=== PATIENT | female | born 2005 | race Two or more races ===

== ENCOUNTER 2025-06-06 17:51 | Emergency (ER) | payer MEDICAID, SELFPAY ==
[2025-06-06 18:16] VITALS: BP 120/81; PULSE 94; RESP 17; TEMP 37.1; O2SAT 100; BMI 17.3
--- NOTE | 2025-06-06 18:25 | EKG_ITS ---
[facility] Test Date: 2025-06-06 Pat Name: ADRIEN MADRID Department: Room: - Gender: Female Temporary Receptionist: : 2005 Requested By: Isidro Roberson Order Number: [id number] Reading MD: Isidro Roberson Measurements Intervals [place] Rate: 87 P: 64 TN: 140 QRS: 80 QRSD: 92 T: 56 QT: 352 QTc: 424 Interpretive Statements SINUS RHYTHM No previous ECG available for comparison /store/S0/[id number]/ecg/[id number].pdf
--- NOTE | 2025-06-06 18:37 | XR_ITS ---
Examination: CT brain head without contrast. 2-D sagittal coronal reconstructions Date and time of exam:June 06, 2025 and 1918 hours INDICATIONS: Syncopal episode today with dilated pupils on clinical examination CTDI: vol (mGy):43.8 DLP: (mGycm):890 Technique: Multiple CT axial sections of the brain have been obtained, 5 mm slice thickness. Contrast has not been administered. 2-D sagittal, coronal reconstructions have been obtained Low dose protocols were performed. One or more of the following dose reduction techniques were used; automated exposure control, adjustment of the mA and/or KV according to patient size, use of iterative reconstruction technique. Findings: No significant ventricular enlargement. Intra-axial or extra-axial hemorrhage density is not seen. No mass effect or midline shift Basal cisterns are not remarkable. Fourth ventricle is midline. Cranial vault intact. Impression: Negative for acute hemorrhage, mass effect or midline shift If symptoms persist, consider brain MRI follow-up
--- NOTE | 2025-06-06 18:47 | PD.EDCHEST ---
ED Chest Pain RME/HPI General Chief Complaint: Dizziness Stated Complaint: DIZZY, SHAKY, CHEST PAIN, DYSPNEA X 10 MIN Time Seen by Provider: 06/06/25 18:36 Arrival date/time: 06/06/25 17:51 19F with no significant PMH presents to ED with episode today of CP, SOB, dizziness, and lightheadedness. Patient states during this episode, she urinated and pooped herself. Patient denies any current pain/symptoms. Patient denies recently having URI symptoms or fevers/chills. Patient also denies drug/alcohol use. Limitations: no limitations Related Data Allergies Allergy/AdvReac Type Severity Reaction Status Date / Time No Known Allergies Allergy Verified 06/06/25 17:54 Review of Systems Review of Systems Systems Reviewed: All systems reviewed, normal except as documented Constitutional Constitutional: Reports system reviewed and no additional complaints, except as documented, Denies fever(s) and Denies headache(s) ENT Ears, Nose, Mouth, and Throat: Reports as per HPI, Denies disequilibrium, Denies headache(s) and Reports vertigo Cardiovascular Cardiovascular: Reports system reviewed and no additional complaints, except as documented, Reports as per HPI, Reports chest pain, Reports dyspnea and Reports syncope (near) Respiratory Respiratory: Reports system reviewed and no additional complaints, except as documented, Denies cough and Reports dyspnea Gastrointestinal Gastrointestinal: Reports system reviewed and no additional complaints, except as documented, Reports as per HPI, Denies abdominal pain, Reports diarrhea, Denies nausea and Denies vomiting Genitourinary Genitourinary: Reports as per HPI and Reports urinary incontinence Neurologic Neurologic: Reports system reviewed and no additional complaints, except as documented, Reports as per HPI, Denies confusion, Denies disequilibrium, Denies headache(s), Reports syncope (near) and Reports vertigo Psychiatric Psychiatric: Denies confusion Past Medical History Social History SMOKING STATUS: Never smoker ED Exam General Limitations: Present no limitations General appearance: Present alert and in no apparent distress Head Head exam: Present atraumatic Eye Eye exam: Present EOMI Expanded Eye Exam Pupils: Bilateral: size (dilated) ENT ENT exam: Present normal exam, normal oropharynx and mucous membranes moist Neck Neck exam: Present normal inspection, full ROM and trachea midline Chest Chest inspection: Present normal inspection and symmetric chest wall rise Respiratory Respiratory exam: Present normal lung sounds bilaterally Cardiovascular Cardiovascular exam: Present regular rate, normal rhythm and normal heart sounds Abdominal Exam Abdominal exam: Present soft and normal bowel sounds Extremities Exam Extremities exam: Present normal inspection and full ROM Back Exam Back exam: Present normal inspection and full ROM Neurological Exam Neurological exam: Present alert, oriented X3 and CN II-XII intact Psychiatric Psychiatric exam: Present normal affect and normal mood Skin Skin exam: Present warm, dry, intact and normal color Course Quality Measures none Orders Category Date Time Status CT Screening NOW Care 06/06/25 20:37 Completed EKG (ED ONLY) *Do not use* NOW Care 06/06/25 18:25 Completed Insert IV NOW Care 06/06/25 20:[address] angio carotid w head w Stat Exams 06/06/25 20:[address] head/brain wo con Stat Exams 06/06/25 18:37 Completed EKG (ED Only) Stat Exams 06/06/25 18:25 Draft XR chest 2V Stat Exams 06/06/25 19:52 Completed Alcohol, Blood Medical Stat Lab 06/06/25 18:55 Completed CBC Stat Lab 06/06/25 18:55 Completed CMP [Comprehensive Metabolic Panel] Stat Lab 06/06/25 18:55 Completed D-Dimer Stat Lab 06/06/25 18:55 Completed Drug Screen,Urine Stat Lab 06/06/25 19:26 Completed HCG Qualitative,Urine Stat Lab 06/06/25 19:26 Completed Troponin I Stat Lab 06/06/25 18:55 Completed Urinalysis, C/S if Indicated Stat Lab 06/06/25 19:26 Completed Vital Signs Vital signs: Vital Signs Temperature 98.7 F 06/06/25 18:16 Pulse Rate 94 06/06/25 18:16 Respiratory Rate 17 06/06/25 18:16 Blood Pressure 120/81 06/06/25 18:16 Pulse Oximetry (%) 100 06/06/25 18:16 Oxygen Delivery Method Room Air 06/06/25 18:16 O2 at 100% on RA and WNLs Chest Pain MDM Narrative MDM Narrative:: 19F with no significant PMH presents to ED with episode today of CP, SOB, dizziness, and lightheadedness. Patient states during this episode, she urinated and pooped herself. Patient denies any current pain/symptoms. Patient denies recently having URI symptoms or fevers/chills. Patient also denies drug/alcohol use. Physical exam reveals dilated pupils, but normal EOM. Otherwise CN II-XII grossly intact. Strength equal bilaterally. Normal WOB. Normal gait. No back or ab tenderness. Patient is afebrile, calm, and alert. EKG is NSR. CT/CTA unremarkable. CXR normal. No leukocytosis. Minimal anemia. CMP unremarkable except for mildly low Na and Cl. Alcohol/tox/HCG neg. UA clean. Spoke to [employer] who recommends MRI head/cervical w and w/o contrast. Patient signed AMA because she didn't want in ED until MRI. Patient will return in AM. Patient data External records reviewed:: [facility] previous records Clinical information provided by:: patient Social determinants that could affect healthcare access:: none Patient has the following chronic illnesses:: none How is presenting disease/condition affected by chronic disease/condition?: no chronic disease Evaluation data The following diagnostics were reviewed and interpreted by me:: lab results, radiology exam(s) and EKG tracing(s) Lab and/or radiology exams considered but not ordered:: ordered Interpretation Summary: above Medications / Prescriptions Medications or Prescriptions considered but not ordered:: not ordered Medication administrations:: n/a Consultations Consultation(s) initiated? (list below): Yes Diagnosis Chest Pain Differential Diagnosis: fracture of rib, pneumothorax, stable angina, unstable angina pectoris, atypical chest pain, st elevation myocardial infarction, costochondritis, chest pain, biliary colic and other (panic attack, brain tumor/bleed, syncope, dizziness, dizziness and incontinence) Most likely diagnosis given after review of the tests above:: dizziness and incontinence Admission Indicated Admission indicated?: not indicated Admission Request Was there a request for admission?: No Disposition Plan Disposition Plan: other (specify) (AMA'd) Discharge Plan Plan Patient Disposition: Left Against Medical Advice Prescriptions/Referrals Referrals: Glenna Jones [Primary Care Provider] - In 1 week Problem List Clinical Impression: Dizziness, Incontinence Patient/Caregiver Discharge Instructions Print Language: Lao PA/GIOVANNA Supervising Physician PA/GIOVANNA Supervising Physician: Dr. Gonzales
[2025-06-06 19:19] LABS: Basophils # (Auto) 0.0 Thou/mm3 (0.0-0.2); Basophils % (Auto) 0 % (0-2.5); Eosinophils # (Auto) 0.4 Thou/mm3 (0.0-0.5); Eosinophils % (Auto) 6 % (0-10); Hematocrit 30.8 % (36.0-46.0); Hemoglobin 10.5 g/dL (12.0-16.0); Immature Granulocytes Auto 0.02 Thou/mm3 (0.00-0.00); Lymphocytes # (Auto) 2.1 Thou/mm3 (1.0-5.0); Lymphocytes % (Auto) 29 % (10-50); Mean Corpuscular HGB Conc 34.1 g/dl (31.0-37.0); Mean Corpuscular Hemoglobin 24.1 pg (25.0-35.0); Mean Corpuscular Volume 71 fL (80-100); Monocytes # (Auto) 0.3 Thou/mm3 (0.0-0.8); Monocytes % (Auto) 4 % (0-12); Neutrophils # (Auto) 4.4 Thou/mm3 (1.8-7.7); Neutrophils % (Auto) 60 % (37-80); Nucleated Red Blood Cell # 0.00 Thou/mm3 (0.00-0.00); Nucleated Red Blood Cell % 0 /100 WBC (0); Platelet Count 265 Thou/mm3 (140-440); RDW Standard Deviation 34.8 fL (36.4-46.3); Red Blood Count 4.35 Miln/mm3 (4.00-5.20); White Blood Count 7.3 Thou/mm3 (4.5-11.0)
[2025-06-06 19:31] LABS: D-Dimer < 250 ng/mL (<600)
[2025-06-06 19:33] LABS: Collection Type, Urine Clean Catch
[2025-06-06 19:48] LABS: Bacteria,Urine Rare; Bilirubin,Urine Negative (Negative); Blood,Urine Negative (Negative); Clarity,Urine Clear (Clear/Hazy); Color,Urine Colorless (Lt Yel-Yel); Culture Indicated,Urine Not Indicated; Glucose, Urine Negative (Negative); Ketones,Urine Negative (Negative); Leukocyte Esterase,Urine Negative (Negative); Nitrite,Urine Negative (Negative); PH,Urine 7.5 (5.0-7.0); Protein,Urine Negative (Neg - Trace); RBC,Urine 1 /hpf (0-3); Specific Gravity,Urine 1.007 (1.001-1.035); Squamous Epithelial Cell,Urine 1 /hpf (0-5); Urobilinogen,Urine Negative mg/dL (0.0-1.0); WBC,Urine < 1 /hpf (0-5)
[2025-06-06 19:49] LABS: Alanine Aminotransferase 41 U/L (10-49); Albumin, Serum 4.7 gm/dL (3.5-5.0); Albumin/Globulin Ratio 2.0 (1.2-2.2); Alcohol, Blood Medical < 3.0 mg/dL (0-10.0); Alkaline Phosphatase 44 U/L (46-116); Anion Gap 13 (7-16); Aspartate Amino Transferase 30 U/L (0-34); BUN/Creatinine Ratio 18 Ratio (12-20); Bilirubin,Total 0.5 mg/dL (0.3-1.2); Blood Urea Nitrogen 14 mg/dL (9-23); Calcium 9.9 mg/dL (8.3-10.6); Calcium (Corrected) 9.9 mg/dL (8.5-10.1); Carbon Dioxide 23.0 mMol/L (20.0-31.0); Chloride 95 mMol/L (98-107); Creatinine (Component) 0.8 mg/dL (0.6-1.3); Estimated Creatinine Clearance 79.4 mL/min (>60); Globulin 2.3 gm/dL (2.3-3.5); Glucose 101 mg/dL (74-106); Osmolality,Calculated 263 (275-295); Potassium 3.5 mMol/L (3.4-5.1); Sodium 131 mMol/L (136-145); Total Protein 7.0 gm/dL (5.7-8.2); Troponin I < 0.002 ng/mL (0.0-0.045); eGFR > 60 See Note
[2025-06-06 19:50] LABS: HCG Qualitative,Urine Negative
--- NOTE | 2025-06-06 19:52 | XR_ITS ---
Examination: PA lateral chest 2 views Technique whereby PA lateral chest 2 views Date and time: June 06, 2025 at 2014 hours INDICATIONS: Chest pain and shortness of breath today. FINDINGS: Normal heart size. Lungs are clear. The osseous structures are intact IMPRESSION: No active disease
[2025-06-06 20:30] LABS: Amphetamine/Methamp Scrn,U Negative (Negative); Barbiturate Screen,Urine Negative (Negative); Benzodiazepines Screen,Urine Negative (Negative); Benzoylecgonine Screen, Ur Negative (Negative); Fentanyl Screen,Urine Negative (Negative); Opiate Screen,Urine Negative (Negative); THC Screen,Urine Negative (Negative)
--- NOTE | 2025-06-06 20:37 | XR_ITS ---
Examination: CTA carotids with intravenous contrast CTA brain, head with intravenous contrast. 2-D sagittal, coronal reconstructions. 3-D reconstructions. Exam date and time: June 06, 2025 2133 hours INDICATION: Syncopal episodes with dilated pupils today CTDI: vol (mGy) 10.2 DLP: (mGycm) 398 Technique: Multiple CTA axial brain, head carotid images post intravenous contrast injection 75 cc, Isovue-[id number]. 2-D sagittal, coronal reconstructions. 3-D reconstructions, 3-D post processing including vascular maximum intensity projection images. Low dose protocols were performed. One or more of the following dose reduction techniques were used; automated exposure control, adjustment of the mA and/or KV according to patient size, use of iterative reconstruction technique. Findings: No common carotid carotid bifurcation or internal carotid artery stenoses Mildly dominant left vertebral artery with no vertebral artery stenoses No cerebral last vessel occlusions or thrombus, no cerebral aneurysm depicted IMPRESSION: No significant neck arterial stenoses No cerebral large vessel arterial occlusions If symptoms persist, consider brain MRI MRA without contrast follow-up
[2025-06-06 20:56] VITALS: BP 105/62; PULSE 68; RESP 16; TEMP 37; O2SAT 100
--- NOTE | 2025-06-07 00:46 | ESCONSULT_ITS ---
History of Present Illness Data of Consult Primary Care Provider: Glenna Jones Consult Narrative cc:: cc: Meds Home Medications and Allergies Allergies Allergy/AdvReac Type Severity Reaction Status Date / Time No Known Allergies Allergy Verified 06/06/25 17:54 Exam - Neurology Vital Signs Temp Pulse Resp BP Pulse Ox O2 Del Method 98.6 F 68 16 105/62 100 Room Air 06/06/25 20:56 06/06/25 20:56 06/06/25 20:56 06/06/25 20:56 06/06/25 20:56 06/06/25 20:56 Results Labs 06/06/25 18:55 06/06/25 18:55 Labs: Short CBC 06/06/25 Range/Units 18:55 WBC 7.3 (4.5-11.0) Thou/mm3 Hgb 10.5 L (12.0-16.0) g/dL Hct 30.8 L (36.0-46.0) % Plt Count 265 (140-440) Thou/mm3 BMP 06/06/25 18:55 Sodium 131 L Potassium 3.5 Chloride 95 L Carbon Dioxide 23.0 BUN 14 Creatinine 0.8 Glucose 101 Calcium 9.9 Cardiac Enzymes 06/06/25 Range/Units 18:55 Troponin I < 0.002 (0.0-0.045) ng/mL Liver Function 06/06/25 Range/Units 18:55 Total Bilirubin 0.5 (0.3-1.2) mg/dL AST 30 (0-34) U/L ALT 41 (10-49) U/L Alkaline Phosphatase 44 L (46-116) U/L Albumin 4.7 (3.5-5.0) gm/dL Urine 06/06/25 Range/Units 19:26 Urine Color Colorless A (Lt Yel-Yel) Urine Clarity Clear (Clear/Hazy) Urine pH 7.5 H (5.0-7.0) Ur Specific [place] 1.007 (1.001-1.035) Urine Protein Negative (Neg - Trace) Urine Glucose (UA) Negative (Negative) Assessment & Plan Additional Assessment & Plan Additional Plan: [facility] Consult Services Stat Consult Patient Name:???ADRIEN MADRID Date of :???2005 Identification Number:??? Date of Service:???06/06/2025 22:50:18 Diagnosis:?R20.8 - Other disturbances of skin sensation ?R42 - Dizziness/ Vertigo/ Giddiness Impression PT is a 19 yo female with no significant past medical history who presents to the ED with an episode of dizziness, numbness in all 4 extremities and bladder and bowel changes. Her symptoms improved and she she currently feels back to baseline. with a normal neurological examination. She has been able to walk unassisted and has been able to go the bathroom with no more episodes of incontinence. Although pt's symptoms are unusual , recommend MRI brain with and without contrast and MRI cervical spine without contrast to rule out any demyelinating disease. Recommendations: Our recommendations are outlined below. Diagnostic Studies :MRI head with and without contrast MRI cervical spine with and without contrast DVT Prophylaxis :Choice of Primary Team Dispositions :Neurology will follow - Advanced Imaging: CTA Head and Neck Completed. LVO:No Patient is not a candidate for [facility]ANNING Metrics: Dispatch Time: 06/06/2025 22:50:18 Callback Response Time: 06/06/2025 22:50:32 Primary Provider Notified of Diagnostic Impression and Management Plan on: 06/07/2025 00:25:52 CT HEAD: I personally reviewed all the CT images that were available to me and it showed:?no acute ischemic changes, no ICH - Chief Complaint: Dizziness, numbness, bladder and bowel incontinence History of Present Illness:Patient is a 19 year old Female. PT is a 19 yo female with no significant past medical history who presents to the ED with an episode of dizziness, numbness in all 4 extremities and bladder and bowel changes. PT states she was in her USOH at about 4 PM when she suddenly felt like she was going to pass out. Her feet and arms then went numb bilaterally and she urinated and defecting on herself. She had some vertigo, but no nausea, visual changes, wekaness. No neck pain or pack pain Her symptoms improved and she she currently feels back to baseline. She has been able to walk unassisted and has been able to go the bathroom with no more episodes of incontinence. Past Medical History: ?There is no history of Hypertension ?There is no history of Diabetes Mellitus ?There is no history of Hyperlipidemia ?There is no history of Atrial Fibrillation ?There is no history of Coronary Artery Disease ?There is no history of Stroke Medications: No Anticoagulant use? No Antiplatelet use Reviewed EMR for current medications Allergies:? NKDA Social History: Smoking: No Alcohol Use: No Family History: There is no family history of premature cerebrovascular disease pertinent to this consultation ROS : 14 Points Review of Systems was performed and was negative except mentioned in HPI. Past Surgical History: There Is No Surgical History Contributory To Today?s Visit There Is Surgical History of:? NO family histoyr of stroke, HTN Examination: BP(105/62),?Pulse(68), 1A: Level of Consciousness - Alert; keenly responsive?+ 0 1B: Ask Month and Age - Both Questions Right?+ 0 1C: Blink Eyes & Squeeze Hands - Performs Both Tasks?+ 0 2: Test Horizontal Extraocular Movements - Normal?+ 0 3: Test Visual Crow - No Visual Loss?+ 0 4: Test Facial Palsy (Use Grimace if Obtunded) - Normal symmetry?+ 0 5A: Test Left Arm Motor Drift - No Drift for 10 Seconds?+ 0 5B: Test Right Arm Motor Drift - No Drift for 10 Seconds?+ 0 6A: Test Left Leg Motor Drift - No Drift for 5 Seconds?+ 0 6B: Test Right Leg Motor Drift - No Drift for 5 Seconds?+ 0 7: Test Limb Ataxia (FNF/Heel-Perez) - No Ataxia?+ 0 8: Test Sensation - Normal; No sensory loss?+ 0 9: Test Language/Aphasia - Normal; No aphasia?+ 0 10: Test Dysarthria - Normal?+ 0 11: Test Extinction/Inattention - No abnormality?+ 0 NIHSS Score:?0 Spoke with :?DR Isidro Roberson This consult was conducted in real time using interactive audio and video technology. Patient was informed of the technology being used for this visit and agreed to proceed. Patient located in hospital and provider located at home/office setting. Patient is being evaluated for possible acute neurologic impairment and high probability of imminent or life - threatening deterioration.I spent total of 35 minutes providing care to this patient, including time for face to face visit via telemedicine, review of medical records, imaging studies and discussion of findings with providers, the patient and / or family. Dr Meeta Rosales [facility] For Inpatient follow-up with [facility] physician please call [facility] at . As we are not an outpatient service for any post hospital discharge needs please contact the hospital for assistance. If you have any questions for the [facility] physicians or need to reconsult for clinical or diagnostic changes please contact us via [facility] at .
== END 2025-06-07 00:36 | disposition left against medical advice (07) ==
PROVIDERS: Physician Assistant; Emergency Provider Emergency Medicine; PCP Physician Assistant
DX: R42 Dizziness and giddiness (principal); R32 Unspecified urinary incontinence; Z53.29 Procedure and treatment not carried out because of patient's decision for other reasons; R07.9 Chest pain, unspecified
CPT/HCPCS: 36415; 70450; 70496; 70498; 71046; 80053; 80307; 80320; 81001; 81025; 84484; 85025; 85379; 93005; 99284; A4649; Q9967; G0480

== ENCOUNTER 2025-06-07 09:35 | Emergency (ER) | payer MEDICAID, SELFPAY ==
[2025-06-07 09:49] VITALS: BP 110/64; PULSE 73; RESP 18; TEMP 36.9; O2SAT 100; BMI 17.2
--- NOTE | 2025-06-07 11:00 | PC.NURSE ---
PATIENT WITH COMPLAINT OF HEADACHE AND STATES THAT SHE WAS SEEN HERE LAST NIGHT AND HAD A CT THAT RECOMMENDED MRI. PATIENT STATES SHE DID CONSULT WITH TELE NEUROLOGIST AND WAS INSTRUCTED TO RETURN TO ED TODAY FOR MRI. PROVIDER WILL EVALUATE PATIENT
--- NOTE | 2025-06-07 11:12 | EDNOTE_ITS ---
ED Dizzyness RME/HPI General Chief Complaint: General Adult/Misc Complain Stated Complaint: HERE FOR MRI ; SEEN ER YESTERDAY FOR SHAKING ; Time Seen by Provider: 06/07/25 11:00 Arrival date/time: 06/07/25 09:35 Limitations: no limitations RME / HPI RME / HPI Narrative: 19-year-old female with a history anxiety is here today for MRI of the brain. 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 Yesterday she had an episode where she had dizziness, felt anxious, had shakes and lost control of her bowel movement and urination. She had no falls or injuries. She had a CT CTA last night and teleneuro was consulted who recommended the patient have a follow-up MRI of the brain and neck with and without contrast. She has had no changes since her visit in the ER last night. Related Data Allergies Allergy/AdvReac Type Severity Reaction Status Date / Time No Known Allergies Allergy Verified 06/07/25 09:38 Review of Systems Review of Systems Systems Reviewed: All systems reviewed, normal except as documented ED Exam General Limitations: Present no limitations General appearance: Present alert and in no apparent distress Head Head exam: Present atraumatic Eye Eye exam: Present normal appearance, PERRL and EOMI ENT ENT exam: Present normal exam, normal oropharynx and mucous membranes moist Neck Neck exam: Present normal inspection, full ROM and trachea midline Chest Chest inspection: Present normal inspection and symmetric chest wall rise Respiratory Respiratory exam: Present normal lung sounds bilaterally Cardiovascular Cardiovascular exam: Present regular rate, normal rhythm and normal heart sounds Abdominal Exam Abdominal exam: Present soft and normal bowel sounds Extremities Exam Extremities exam: Present normal inspection and full ROM Back Exam Back exam: Present normal inspection and full ROM Neurological Exam Neurological exam: Present alert, oriented X3 and CN II-XII intact Psychiatric Psychiatric exam: Present normal affect and normal mood Skin Skin exam: Present warm, dry, intact and normal color Course Quality Measures none Orders Category Date Time Status MRI Screening NOW Care 06/07/25 11:04 Completed Vital Signs Vital signs: Vital Signs Temperature 98.4 F 06/07/25 09:49 Pulse Rate 73 06/07/25 09:49 Respiratory Rate 18 06/07/25 09:49 Blood Pressure 110/64 06/07/25 09:49 Pulse Oximetry (%) 100 06/07/25 09:49 Oxygen Delivery Method Room Air 06/07/25 09:49 Dizziness MDM Narrative MDM Narrative:: 19-year-old female with a history anxiety is here today for MRI of the brain. 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 Yesterday she had an episode where she had dizziness, felt anxious, had shakes and lost control of her bowel movement and urination. She had no falls or injuries. She had a CT CTA last night and teleneuro was consulted who recommended the patient have a follow-up MRI of the brain and neck with and without contrast. She has had no changes since her visit in the ER last night. On exam, patient is nontoxic-appearing and in no visible signs distress. I reviewed the prior chart notes. MR scans were ordered. Patient did elope from the emergency room and the scans were not complete. Patient data External records reviewed:: [facility] previous records Clinical information provided by:: patient and family Social determinants that could affect healthcare access:: none Patient has the following chronic illnesses:: n/a How is presenting disease/condition affected by chronic disease/condition?: no chronic disease Evaluation data The following diagnostics were reviewed and interpreted by me:: radiology exam(s) and other (specify) (n/a) Lab and/or radiology exams considered but not ordered:: n/a Interpretation Summary: n/a Medications / Prescriptions Medications or Prescriptions considered but not ordered:: n/a Medication administrations:: n/a Consultations Consultation(s) initiated? (list below): No Diagnosis Dizziness Differential Diagnosis: other (eloped) Most likely diagnosis given after review of the tests above:: eloped Admission Indicated Admission indicated?: not indicated Admission Request Was there a request for admission?: No Disposition Plan Disposition Plan: other (specify) (eloped ) Discharge Plan Plan Patient Disposition: Left Against Medical Advice Prescriptions/Referrals Referrals: Glenna Jones [Primary Care Provider] - In 1 week Problem List Clinical Impression: Eloped from emergency department Patient/Caregiver Discharge Instructions Print Language: Lebanese
--- NOTE | 2025-06-07 14:35 | PC.NURSE ---
PATIENT REQUESTING TO LEAVE DUE TO WAITING TOO LONG FOR MRI. PROVIDER MADE AWARE AND PATIENT UNDERSTANDS RISKS UP TO AND INCLUDING . AMA FORM SIGNED, IV REMOVED AND PATIENT WALKED OUT WITH FAMILY.
== END 2025-06-07 14:43 | disposition left against medical advice (07) ==
LOC: SERX 10:46
PROVIDERS: Emergency Provider Emergency Medicine; PCP Physician Assistant
DX: R42 Dizziness and giddiness (principal); R25.1 Tremor, unspecified; Z53.29 Procedure and treatment not carried out because of patient's decision for other reasons
CPT/HCPCS: 99283

== ENCOUNTER → 2025-06-27 | Outpatient (CLI) | payer MEDICAID, SELFPAY ==
[2025-06-26 14:57] LABS: HCG Qualitative,Urine Negative
--- NOTE | 2025-06-27 17:00 | XR_ITS ---
Examination: MRI of brain without intravenous contrast. MRI brain with intravenous contrast. Date and time: June 27, 2025, 1751 hours INDICATIONS: Dizziness and headaches blurred vision numbness in extremities beginning June 06, 2025 Technique: Multiple axial and sagittal images of the brain to been obtained. Siemens high-resolution 1.52 Kim short bore scanner utilized. Sagittal sections, T1 weighted images, TR 500, TE 14, are performed. Axial sections proton-density and T2-weighted images have been obtained. Inversion recovery axial images, TR 9260, TE 111, TR 2500. Diffusion weighted images, axial sections, TR 4800, TE 128, B value 1000. Axial sections, ADC map, TR 4800, TE 128. Axial and coronal images were also obtained post 8 cc gadolinium administered intravenously. Findings:: Enlargement of the sella turcica is not present. The optic chiasm and infundibular stalk are not remarkable. There is no localized enlargement of the medulla or juan. Fourth ventricle and cerebellar tonsils appear normal in position. No subacute area of hemorrhage density is seen. Fourth ventricle is midline. Mass in the cerebellopontine angle region is not evident. 7th and 8th nerve complexes exhibit symmetry Globes are symmetrical Orbital musculature including medial lateral rectus muscles do not exhibit abnormality Increased white matter signal is not seen Effacement of the cortical sulcal markings is not identified. Mass effect upon the ventricular system is not identified. Diffusion-weighted images demonstrate no focus of restricted diffusion Contrast images demonstrate no abnormal enhancement Impression: Negative for acute hemorrhage mass effect or midline shift No acute infarct No MR findings diagnostic for demyelinating disease No abnormal enhancing cerebellar or cerebral lesions
== END | disposition home or self-care (01) ==
LOC: SMRI 16:26
PROVIDERS: PCP Physician Assistant; Referring Provider Physician Assistant; Visit Provider Physician Assistant
DX: R51.9 Headache, unspecified (principal); R42 Dizziness and giddiness; N39.46 Mixed incontinence; Z32.00 Encounter for pregnancy test, result unknown
CPT/HCPCS: 70553; 81025; A9579

== ENCOUNTER → 2025-09-25 | Outpatient (CLI) | payer MEDICAID, SELFPAY ==
--- NOTE | 2025-09-25 09:00 | XR_ITS ---
Examination: Pelvic ultrasound, transabdominal, complete Technique: Transabdominal ultrasound of the pelvis performed using grayscale imaging Date and time of exam: 09/25/2025, 9:34 a.m. INDICATION: Amenorrhea. FINDINGS: The uterus is anteverted and measures 6.1 x 2.7 x 4.0 cm. It exhibits normal echotexture. No fibroids identified. Normal-appearing endometrium measuring 0.5 cm in thickness. The right ovary measures 3.5 x 1.4 x 1.7 cm. Right ovarian volume = 4.44 cc. It demonstrates intact blood flow. Multiple small follicles are seen. The left ovary measures 3.2 x 1.2 x 1.3 cm. Left ovarian volume 2.71 cc. It demonstrates intact blood flow. It is unremarkable. No adnexal masses. No free pelvic fluid. IMPRESSION: Negative pelvic ultrasound for acute abnormality. The ovaries are normal in appearance.
== END | disposition home or self-care (01) ==
LOC: CDIM 09:09
PROVIDERS: PCP Physician Assistant; Referring Provider Physician Assistant; Visit Provider Physician Assistant
DX: N91.2 Amenorrhea, unspecified (principal)
CPT/HCPCS: 76856